=== PATIENT | male | born 1965 | race African-American/Black ===

== ENCOUNTER 2016-09-24 09:38 | Emergency (ER) | payer OTHER ==
[2016-09-24] MEDS ORDERED: TORADOL IM ONE (10:39)
[2016-09-24] MEDS ORDERED: NORFLEX IM ONE (10:39)
--- NOTE | 2016-09-24 10:46 | PROVIDER DOCUMENTATION ---
HPI-Musculoskeletal Pain/Inj - GENERAL Chief Complaint: Fall Stated Complaint: FALL/HIP INJURY Time Seen by Provider: 09/24/16 10:24 Source: patient - HX OF PRESENT ILLNESS-MUSKULOSKELTAL Nature of Presenting Problem: 51 y/o BM c/o neck pain, low back pain, R hip pain x 2 days s/p fall. pt states he was sitting in his piano stool when the stool gave out and he fell backwards and to the right, hitting his head against a wall with flexion to neck and then hitting his R hip on the floor. States pain to the area. Can ambulate, but with pain. States pain radiating down RLE. Denies numbness/ tingling, LOC, MCMULLEN, vision changes, bowel/bladder dysfunction. Review of Systems - Adult - REVIEW OF SYSTEMS - ADULT Constitutional: reports: no symptoms reported. denies: chills, fever Eyes: reports: no symptoms reported. denies: blurred vision, double vision Ears, Nose, Mouth & Throat: reports: no symptoms reported. denies: ear pain, nose pain Cardiovascular: reports: no symptoms reported. denies: chest pain, palpitations Respiratory: reports: no symptoms reported. denies: dyspnea on exertion, shortness of breath Gastrointestinal: reports: no symptoms reported. denies: abdominal pain, nausea , vomiting Genitourinary: reports: no symptoms reported. denies: dysuria, frequency Musculoskeletal: reports: see HPI, back pain, joint pain, neck pain. denies: muscle aches Integumentary: reports: no symptoms reported. denies: nail changes, rash Neurological: reports: no symptoms reported. denies: dizziness/vertigo, headache/migraines, numbness, paresthesia Psychiatric: reports: no symptoms reported Endocrine: reports: no symptoms reported. denies: cold intolerance, heat intolerance Hematologic/Lymphatic: reports: no symptoms reported. denies: easy bruising, prolonged bleeding Allergic/Immunologic: reports: no symptoms reported All Other Systems: Reviewed and Negative Past History - Adult - PAST MEDICAL HISTORY-ADULT Review of Records: reports: Nursing Assessment Review, Medications Reviewed - SOCIAL HISTORY Smoking: less than 1 pack/day Provider spent 3-5 mins advising pt. on dangers of tobacco.: Discussed manners to quit use, and f/u contacts for add'l counseling. Alcohol Use Frequency: never Living Situation: family Physical Exam-Injury Related - Physical Exam-Injury Related Initial Vital Signs Reviewed: Yes General Appearance: alert, mild distress, obese Eyes: PERRL/EOMI, pink conjunctivae. negative: EOM palsy Head, Ears, Nose, Mouth & Throat: normocephalic/atraumatic, moist mucous membranes Neck: supple, normal inspection, limited range of motion, pain on movement. negative: C-spine tenderness Respiratory: lungs clear, normal breath sounds. negative: crackles, rales, rhonchi, stridor Cardiovascular: regular rate, rhythm. negative: bradycardia, tachycardia Back Exam: normal inspection, decreased range of motion, vertebral tenderness ( lumbar spine, mild), other (TTP R low back) Extremity: normal gait, normal inspection. negative: abnormal NV exam, pulse deficit Integumentary: normal color, warm/dry, blanching Neurologic: negative: aphasia, motor weakness (bilat LE), sensory deficit ( bilat LE) Psych/Mental Status: normal mood/affect, normal thought content, normal thought process, oriented x 3 Progress - PLAN OF CARE/RESULTS Progress/Plan/Lab Results: Orders Category Date Time Status CERVICAL SPINE COMPLETE [RAD] Stat Exams 09/24/16 10:34 Taken LUMBAR SPINE [RAD] Stat Exams 09/24/16 10:34 Taken XRAY PELVIS W/HIP 2-3VW RT [RAD] Stat Exams 09/24/16 10:36 Taken Ketorolac [Toradol] Med 09/24/16 10:39 Discontinued 60 mg IM NOW ONE Orphenadrine [Norflex] Med 09/24/16 10:39 Discontinued 60 mg IM NOW ONE Vital Signs Temp Pulse Resp BP Pulse Ox 09/24/16 10:14 97.4 F L 76 18 120/72 98 No Known Allergies Allergy (Verified 09/24/16 10:18) Meloxicam [Mobic] 15 mg PO DAILY #30 tablet 09/24/16 Methocarbamol [Robaxin] 500 mg PO BID #30 tablet 09/24/16 Discussed results and f/u with pt. - XRAY 1 XRAY Study: Lumbar Spine XRAY Interpretation: No fx seen; arthritic changes noted with stool in vault 2 XRAY Study: C-Spine Impression: See EMR Report (moderated DJD; no fracture or subluxation seen -per Dr. Webster) 3 XRAY: Right XRAY Study: Pelvis, Hip Impression: See EMR Report (NAD, per Dr. Webster) Departure - Departure Time of Disposition Order: 11:25 DIAGNOSIS: Hip pain, right Fall Qualifiers: Encounter type: initial encounter Qualified Code(s): W19.XXXA - Unspecified fall, initial encounter DJD (degenerative joint disease) of cervical spine Qualifiers: Spinal osteoarthritis complication: unspecified spinal osteoarthritis Qualified Code(s): M47.812 - Spondylosis without myelopathy or radiculopathy, cervical region Low back pain Qualifiers: Chronicity: acute Back pain laterality: right Sciatica presence: with sciatica Sciatica laterality: sciatica of right side Qualified Code(s): M54.41 - Lumbago with sciatica, right side Disposition: HOME 01 Certified Medical Emergency: Emergent Condition: Stable Additional Instructions: Take medications as directed. Tylenol for breakthrough pain. Follow up with specialist for further management. Heat as needed. ED Follow Up Instructions: You have been treated by a care provider in the Emergency Department. These instructions are being provided to you so you can have an understanding of how to care for yourself upon discharge. Upon discharge from the Emergency Department, you are responsible for making arrangements for follow-up care by a physician of your choice. Take all prescribed medications as directed. Return to the Emergency Department immediately for any new or worsening symptoms. You may call the Physician Referral phone number at [phone] to obtain a list of Physicians who are taking new patients. Prescriptions: Meloxicam [Mobic] 15 mg PO DAILY #30 tablet Methocarbamol [Robaxin] 500 mg PO BID #30 tablet Referrals: None,PCP [Primary Care Provider] - Kael Del Cid MD [STAFF PHYSICIAN] - Attestation - Physician/ DAMION Attestation Patient care was provided by Advanced Practice Provider:: Yes Advanced Practice Provider:: Tammy Gordon Advanced Practice Provider documentation review:: The Mid-level provider documentation, treatment plan and medical decision making was reviewed by the physician who agrees with all treatment and medical decision making by the MLP.
[2016-09-24 11:58] VITALS: BP 132/66
--- NOTE | 2016-09-24 12:08 | Diag Imaging Result Document ---
PROCEDURE NAME: CERVICAL SPINE COMPLETE - 09/24/2016 CERVICAL SPINE 6 VIEWS: COMPARISON: No comparison exam. FINDINGS: There is straightening of the normal lordosis which may relate to muscle spasm. There is moderate multilevel degenerative disease. There is some associated multilevel degenerative neural foraminal narrowing. There is no evidence of fracture, subluxation, or precervical soft tissue swelling. IMPRESSION: 1. Moderate multilevel degenerative disease. 2. No evidence of fracture or subluxation.
--- NOTE | 2016-09-24 12:09 | Diag Imaging Result Document ---
PROCEDURE NAME: XRAY PELVIS W/HIP 2-3VW RT - 09/24/2016 RIGHT HIP AND PELVIS, FOUR VIEWS: FINDINGS: There is no evidence for fracture or dislocation. There is no other substantial abnormality identified, other than possible mild degenerative changes at the bilateral hips. IMPRESSION: No evidence of fracture or dislocation.
--- NOTE | 2016-09-24 12:14 | Diag Imaging Result Document ---
PROCEDURE NAME: LUMBAR SPINE - 09/24/2016 LUMBAR SPINE, 6 VIEWS: FINDINGS: There is no fracture or subluxation identified. There are mild degenerative changes. IMPRESSION: Mild degenerative changes. No evidence of fracture or subluxation.
== END 2016-09-24 11:57 | disposition home or self-care (01) ==
LOC: P.ED 09:38
DX: M54.41 Lumbago with sciatica, right side (principal); M25.551 Pain in right hip; M47.812 Spondylosis without myelopathy or radiculopathy, cervical region; M54.2 Cervicalgia; W19.XXXA Unspecified fall, initial encounter; F17.210 Nicotine dependence, cigarettes, uncomplicated; Z71.6 Tobacco abuse counseling; E66.9 Obesity, unspecified
CPT/HCPCS: 72050; 72110; 96372; J1885; J2360